=== PATIENT | male | born 1945 | race Caucasian/White ===

== ENCOUNTER 2017-01-15 09:02 | Day surgery (SDC) | payer MEDICARE, OTHER ==
[~2017-01-15 09:02] MED LIST: ADVIL200 M3; ASPIRIN325 M3 PO; ESSENTIAL DAIL1 EACH; FISH OIL 11000 MG/CA; GLUCOPHAGE500 M3 PO; LISINOPRIL-HCT1 EAC3; OCUVITE EYE +1 EACH; TENORMIN50 M1 PO; THYROSAFE; TYLENOL EXTRA500 M1; ZINC; ZYLOPRIM100 M1 PO
[2017-01-15] MEDS ORDERED: CENTRUM SILVER1 EAC7 (09:49)
[2017-01-15] MEDS ORDERED: POTASSIUM99 M5 (09:49)
[2017-01-15] MEDS ORDERED: ISOSORBIDE MONO30 M4 PO (09:52)
[2017-01-15] MEDS ORDERED: TYLENOL PM EX-1 EAC4 (09:54)
[2017-01-15] MEDS ORDERED: MULTI-VITAMIN1 EAC4 (09:55)
[2017-01-15] MEDS ORDERED: [UNRECOGNIZED DRUG - OTHER] (09:56)
[2017-01-15] MEDS ORDERED: ADVIL PM CAPLE1 EACH (09:56)
[2017-01-15 10:05] LABS: BASO % 0.7 % (0-2); BASO ABSOLUTE COUNT 0.1 tho/cmm (0.0-0.2); EOS % 3.7 % (0-7); EOSINOPHIL ABSOLUTE COUNT 0.3 tho/cmm (0.0-0.7); HCT-HEMATOCRIT 35.9 % (36.0-53.5); HGB-HEMOGLOBIN 11.9 gm/dl (13.5-17.0); IMMATURE GRANULOCYTES ABSOLUTE 0.01 tho/cmm (0-0.03); IMMATURE GRANULOCYTES PERCENT 0.1 % (0-0.3); LYMPH % 14.2 % (20-45); MCHC MEAN CORPUSCULAR HGB CONC 33.1 % (32.0-36.0); MCV (MEAN CELL VOLUME) 87.6 fl (82.0-96.0); MEAN PLATELET VOLUME 10.2 cmc (9.4-12.4); MONO % 11.3 % (0-12); MONOCYTE ABSOLUTE COUNT 0.8 tho/cmm (0.0-1.2); NEUTROPHIL ABSOLUTE COUNT 5.1 tho/cmm (1.6-8.0); NEUTROPHIL-AUTOMATED 5.1 tho/cmm (1.6-8.0); PLATELET COUNT 209 tho/cmm (150-450); WHITE BLOOD COUNT 7.3 tho/cmm (4.0-10.0)
[2017-01-15 10:14] LABS: INR 1.1 INR (0.9-1.1); PROTHROMBIN TIME 12.2 SECONDS (9.0-13.6)
[2017-01-15 10:21] LABS: ANION GAP 12 mmol/L (0-20); BLOOD UREA NITROGEN 41 mg/dl (6-24); CALCIUM 9.5 mg/dl (8.5-10.5); CARBON DIOXIDE-VENOUS 25 mmol/L (22-32); CHLORIDE 109 mmol/l (96-110); CHOLESTEROL 147 mg/dl (120-200); CREATININE 1.45 mg/dl (0.60-1.30); GLUCOSE 124 mg/dL (70-110); HDL CHOLESTEROL 37 mg/dl (40-60); LDL CHOLESTEROL 85 mg/dl (0-99); POTASSIUM 5.3 mmol/L (3.7-5.1); SODIUM 141 mmol/L (135-145); TRIGLYCERIDES 129 mg/dl (<149); VLDL 26 mg/dl (0-30); eGFR VALUE FOR BLACK 56 mL/Min
== END 2017-01-15 15:45 ==
LOC: SHSB 09:02
PROVIDERS: Internal Medicine Interventional Cardiology
PROC: B2111ZZ Fluoroscopy of Multiple Coronary Arteries using Low Osmolar Contrast (ICD-10-PCS; principal; 2017-01-15)
DX: I25.10 Atherosclerotic heart disease of native coronary artery without angina pectoris (principal); I12.9 Hypertensive chronic kidney disease with stage 1 through stage 4 chronic kidney disease, or unspecified chronic kidney disease; E11.22 Type 2 diabetes mellitus with diabetic chronic kidney disease; N18.3 Chronic kidney disease, stage 3 (moderate); E78.5 Hyperlipidemia, unspecified; R00.1 Bradycardia, unspecified; M19.90 Unspecified osteoarthritis, unspecified site; M10.9 Gout, unspecified; Z01.810 Encounter for preprocedural cardiovascular examination; Z79.82 Long term (current) use of aspirin; Z79.84 Long term (current) use of oral hypoglycemic drugs; Z79.899 Other long term (current) drug therapy; Z90.89 Acquired absence of other organs; Z98.52 Vasectomy status; Z96.653 Presence of artificial knee joint, bilateral; Z98.890 Other specified postprocedural states
CPT/HCPCS: C1894; J1644; J2250; J3010; J7030; Q9967